=== PATIENT | female | born 1950 | race Caucasian/White ===

== ENCOUNTER → 2017-01-23 | Outpatient (CLI) | payer OTHER ==
--- NOTE | 2017-01-24 08:44 | PN ---
A 66-year-old female patient coming in for a 3-year followup regarding obstructive sleep apnea. The patient has an AHI of 18 and the patient has been on a CPAP pressure of 9 cm of water. She is using a Martin FX mask. She preferred an alternative mask and she wants to keep up with a pillow design. I gave her the AirFit P10 medium size, which she liked. A prescription was given. Otherwise, her management is successful and her average CPAP use is around 7 hours and 12 minutes per night. She is waking up refreshed and alert during the day. No complaints of somnolence or sleepiness. BP is 156/78, pulse 88, respirations 16, temperature 98.1, sats are 96% on room air. Weight is 223. Height 5 feet 1 inch. BMI is 41.4. GENERAL APPEARANCE: Calm, comfortable. HEENT: Short neck, crowing of posterior pharynx. There is no goiter or neck masses. LUNGS: Clear to auscultation. HEART: Sounds regular rate and rhythm. Normal S1 and S2. No S3, no murmur. ABDOMEN: Soft, nontender. No organomegaly. EXTREMITIES: No edema. No cyanosis or clubbing. IMPRESSION: 1. Obstructive sleep apnea. AHI of 18. Successful treatment with a CPAP pressure of 9 cm of water. 2. Obesity with interval 20-pound weight gain. Body mass index 41.4. 3. Hypersomnia, recovered. 4. Hypothyroidism. PLAN: 1. Continue CPAP at same level of pressure. 2. Provide this patient a AirFit P10 nasal pillow along with filters, chamber and supplies. 3. See me back in a years time, earlier if needed. The prescription will be sent to [facility] the patient's usual DME. LEXIS
== END ==
LOC: SLEEP 16:33
PROVIDERS: ATTEND Internal Medicine Critical Care Medicine
DX: G47.33 Obstructive sleep apnea (adult) (pediatric) (principal); E66.9 Obesity, unspecified; G47.10 Hypersomnia, unspecified; E03.9 Hypothyroidism, unspecified; Z68.41 Body mass index [BMI] 40.0-44.9, adult

== ENCOUNTER → 2017-04-13 | Outpatient (CLI) | payer OTHER ==
--- NOTE | 2017-04-13 08:23 | BD ---
EXAMINATION TYPE: MG DEXA axial skeleton. DATE OF EXAM: 04/13/2017 COMPARISON: 12/11/2014 CLINICAL HISTORY: Postmenopausal female Height: 61.5 IN Weight: 222 LBS FRAX RISK QUESTIONS: Alcohol (3 or more units per day): NO Family History (Parent hip fracture): YES MOTHER Glucocorticoids (More than 3mos): NO (Ex: prednisone, prednisolone, methylprednisolone, dexamethasone, and hydrocortisone). History of Fracture in Adulthood: NO Secondary Osteoporosis: 1. Type 1 Diabetes: NO 2. Hyperthyroidism: NO 3. Menopause before 45: NO 4. Malnutrition: NO 5. Chronic liver disease: NO Rheumatoid Arthritis: NO Current Tobacco Use: NO RISK FACTORS HISTORY OF: Active: YES Postmenopausal woman: AGE 51 MEDICATIONS: Thyroid Medications: YES Which medication: Levothyroxine How Lon YEARS Osteoporosis Medications: NOT NOW Which medication: Actonel How Long: AGE 60 - 61 Additional Medications: CALCIUM, VIT D, MULTI VIT, LEVOTHYROXINE, LIPITOR, SINGULAIR, EXAM MEASUREMENTS: Bone mineral densitometry was performed using the Yantra System. Bone mineral density as measured about the Lumbar spine is: ----- L1-L4(G/cm2): 1.008 T Score Values are as follows: ----- L2: -1.8 ----- L3: -1.6 ----- L4: -1.5 ----- L1-L4: -1.4 Bone mineral density has: Increased 0.6% since study of: 12/11/2014 Bone mineral density about the R hip (g/cm2): 0.906 Bone mineral density about the L hip (g/cm2): 0.859 T Score values are as follows: -----R Neck: -0.9 -----L Neck: -1.3 -----R Total: -0.4 -----L Total: -0.4 Bone mineral density has: Increased 3.0% since study of: 12/11/2014 IMPRESSION: Osteopenia (T Score between -2.5 and -1 as noted by T score values There is slightly increased risk of fracture and the patient may be considered for treatment. Re-Screen 2-5 years. NOTE: T-SCORE=SD OF THE YOUNG ADULT MEAN.
--- NOTE | 2017-04-17 08:06 | MM ---
Reason for exam: screening (asymptomatic). Last mammogram was performed 1 year and 1 month ago. History: Patient is postmenopausal. Physical Findings: A clinical breast exam by your physician is recommended on an annual basis and results should be correlated with mammographic findings. MG Screening Mammo w CAD Bilateral CC and MLO view(s) were taken. Prior study comparison: March 10, 2016, bilateral MG screening mammo w CAD. April 21, 2014, bilateral MG screening mammo w CAD. There are scattered fibroglandular densities. No significant changes when compared with prior studies. ASSESSMENT: Negative, BI-RAD 1 RECOMMENDATION: Routine screening mammogram of both breasts in 1 year.
== END | disposition home or self-care (01) ==
LOC: RADMAMWWP 07:32
PROVIDERS: ATTEND Family Medicine
DX: Z12.31 Encounter for screening mammogram for malignant neoplasm of breast (principal); M85.852 Other specified disorders of bone density and structure, left thigh; M85.88 Other specified disorders of bone density and structure, other site
CPT/HCPCS: 77080; G0202

== ENCOUNTER → 2018-03-12 | Outpatient (CLI) | payer OTHER ==
--- NOTE | 2018-03-12 18:52 | PN ---
PROGRESS NOTE This is a 66-year-old female patient with a diagnosis of obstructive sleep apnea. She is coming in for an annual check regarding her KAUSHIK treatment. The patient during this time has obtained a new CPAP machine and she wants to make sure the machine is functioning properly and the settings are right, and she wants also to do a compliancy check. She is benefitting from the treatment. This new CPAP machine is a ResMed unit, an AirSense which is set at a pressure of 9 cm of water. She is still using the AirFit P10 nose pillows. She is doing extremely well. She is waking up alert and refreshed during the day. No major hypersomnia or sleepiness during the day. Based on the CPAP compliance data, the CPAP has been utilized 100% of the time with an average of 7.4 hours per night and her leak factor is 1 L. Her AHI while on treatment is down to 1. No central apneas noted. PHYSICAL EXAMINATION: BP is 160/86, pulse 70, respirations 16. [place] score is 1, temperature 98.1, weight 226, saturation 95% on room air. GENERAL APPEARANCE: Calm, comfortable. Head is atraumatic, normocephalic. Neck is supple. No JVD. No goiter or neck masses. LUNGS: Clear to auscultation. Heart sounds are regular rate and rhythm. Normal S1, S2. No S3, S4. No murmurs. Abdomen is soft, nontender. No organomegaly. EXTREMITIES: No edema. No cyanosis or clubbing. NEUROLOGIC: The patient is alert and oriented x3. No focal neurological deficits. PSYCHIATRIC: Negative for anxiety or depression. IMPRESSION: Obstructive sleep apnea, moderate in severity, with an apnea/hypopnea index of 18. The patient is being successfully treated with a CPAP machine with a pressure of 9 cm of water. The patient continues to benefit from treatment. The patient is demonstrating adequate compliancy on the CPAP compliancy data. Continue using the AirFit P10 nose pillows. Continue treatment. See me back in followup in a year's time, earlier if needed. MMIRAJL / DENNISN: [id number] /
== END | disposition home or self-care (01) ==
LOC: SLEEP 16:20
PROVIDERS: ATTEND Internal Medicine Critical Care Medicine
DX: G47.33 Obstructive sleep apnea (adult) (pediatric) (principal); Z99.89 Dependence on other enabling machines and devices

== ENCOUNTER → 2019-03-25 | Outpatient (CLI) | payer OTHER ==
--- NOTE | 2019-03-25 19:52 | PN ---
PROGRESS NOTE This is a 68-year-old female patient coming in for an annual check regarding obstructive sleep apnea. The patient was diagnosed having obstructive sleep apnea and in mid 2018 I switched this patient to a newer-generation CPAP unit, as the patient's previous machine was not functioning properly and it was broken. As such, I ordered a new CPAP machine for her. I did her first compliancy check on 03/12/2018, and the patient looked fine. Today she is coming in for a yearly checkup. I am glad to report that the patient has been successfully treated. She has moderate to severe disease with an AHI of 18 and the patient is currently on a CPAP pressure of 9 cm of water. Based on the compliancy check, the patient has been averaging about 7.6 hours of CPAP use per night with a leak of 5 L/minute and her AHI is down to 1.2. Her CPAP use for more than 4 hours is 100%. She is using medium-sized AirFit P10 nose pillows. Her weight has been stable, with only a one-pound weight gain over the past one year. Her [place] score is only at 2. She has no specific complaints. Her treatment remains successful. REVIEW OF SYSTEMS: Fourteen-point review of system was done. Positive findings are all mentioned above in the history of present illness. No active issues or complaints for now. PHYSICAL EXAMINATION: VITAL SIGNS: BP is 149/79, pulse is 82, respirations 16, temperature 98.2, saturation 94% on room air. Height is 5 feet 1 inch. Weight is 227 and BMI 42.8. GENERAL APPEARANCE: Calm, comfortable. HEAD: Atraumatic, normocephalic. NECK: Supple. Mallampati class IV. There is no goiter or neck mass. LUNGS: Clear to auscultation. HEART: Heart sounds are regular rate and rhythm. Normal S1, S2. No S3, S4. No murmurs. ABDOMEN: Soft, nontender. No organomegaly. EXTREMITIES: No edema. No cyanosis or clubbing. NEUROLOGIC: Awake and alert. There is no focal neurological deficit. PSYCHIATRIC: Negative for anxiety or depression. IMPRESSION: 1. Obstructive sleep apnea, apnea/hypopnea index of 18, currently on CPAP pressure of 9 with excellent clinical response and compliance. 2. Obesity, stable; body mass index of 41. 3. Hypersomnia, recovered. [place] score is down to 2. 4. Hypothyroidism. PLAN: Continue CPAP therapy at the same level of pressure. The patient is currently well treated and there is no need for any adjustment. Will keep her at a pressure of 9. Keep the same mask interface, which is an AirFit P10. Encourage weight loss. Optimize sleep hygiene measures. Treatment is successful. See me back in a year's time, earlier if needed. TITO / DENNISN: [id number] /
== END ==
LOC: SLEEP 13:42
PROVIDERS: ATTEND Internal Medicine Critical Care Medicine
DX: G47.33 Obstructive sleep apnea (adult) (pediatric) (principal); E66.9 Obesity, unspecified; E03.9 Hypothyroidism, unspecified; Z99.89 Dependence on other enabling machines and devices; Z68.41 Body mass index [BMI] 40.0-44.9, adult

== ENCOUNTER → 2020-02-24 | Outpatient (CLI) | payer OTHER ==
--- NOTE | 2020-02-25 11:09 | MM ---
Reason for exam: screening (asymptomatic). Last mammogram was performed 1 year and 6 months ago. History: Patient is postmenopausal. Physical Findings: A clinical breast exam by your physician is recommended on an annual basis and results should be correlated with mammographic findings. MG Screening Mammo w CAD Bilateral CC and MLO view(s) were taken. Prior study comparison: August 19, 2018, bilateral MG screening mammo w CAD. April 13, 2017, bilateral MG screening mammo w CAD. There are scattered fibroglandular densities. Finding: There are typically benign round, regional calcifications in the right breast. There is no discrete abnormality. ASSESSMENT: Benign, BI-RAD 2 RECOMMENDATION: Routine screening mammogram of both breasts in 1 year.
== END | disposition home or self-care (01) ==
LOC: RADMAMWWP 15:47
PROVIDERS: ATTEND Family Medicine
DX: Z12.31 Encounter for screening mammogram for malignant neoplasm of breast (principal)
CPT/HCPCS: 77067

== ENCOUNTER 2020-02-27 16:42 | Observation (INO) | payer OTHER ==
--- NOTE | 2020-02-27 17:21 | ED ---
General Adult HPI - General Chief complaint: Chest Pain Stated complaint: chest pains Time Seen by Provider: 02/27/20 16:59 Source: patient, RN notes reviewed, old records reviewed Mode of arrival: ambulatory Limitations: no limitations - History of Present Illness Initial comments: 69 yo - Related Data Home Medications Medication Instructions Recorded Confirmed Ascorbic Acid [Vitamin C] 500 mg PO DAILY 02/27/20 02/27/20 Aspirin EC [Ecotrin Low Dose] 81 mg PO DAILY 02/27/20 02/27/20 Atorvastatin Calcium [Lipitor] 20 mg PO HS 02/27/20 02/27/20 Calcium Carbonate [Calcium] 600 mg PO DAILY 02/27/20 02/27/20 Cholecalciferol [Vitamin D3 (25 1,000 unit PO DAILY 02/27/20 02/27/20 Mcg = 1000 Iu)] Fish Oil/Dha/Epa [Fish Oil 1,200 1 cap PO HS 02/27/20 02/27/20 mg Fish Oil] Levothyroxine Sodium [Euthyrox] 125 mcg PO DAILY 02/27/20 02/27/20 Loratadine 10 mg PO DAILY 02/27/20 02/27/20 Montelukast [Singulair] 10 mg PO HS 02/27/20 02/27/20 Multivitamins, Thera [Multivitamin 1 tab PO DAILY 02/27/20 02/27/20 (formulary)] Allergies Allergy/AdvReac Type Severity Reaction Status Date / Time No Known Allergies Allergy Verified 02/27/20 17:54 Review of Systems ROS Statement: Those systems with pertinent positive or pertinent negative responses have been documented in the HPI. ROS Other: All systems not noted in ROS Statement are negative. Past Medical History Past Medical History: Asthma, Hyperlipidemia, Sleep Apnea/CPAP/BIPAP, Thyroid Disorder Additional Past Medical History / Comment(s): heart murmur History of Any Multi-Drug Resistant Organisms: None Reported Past Surgical History: No Surgical Hx Reported Past Psychological History: No Psychological Hx Reported Smoking Status: Never smoker Past Alcohol Use History: None Reported Past Drug Use History: None Reported General Exam Limitations: no limitations Course Vital Signs 02/27/20 16:48 Temperature 97.9 F Pulse Rate 77 Respiratory 18 Rate Blood Pressure 183/85 O2 Sat by Pulse 96 Oximetry EKG Findings - EKG Comments: EKG Findings:: EKG: Normal sinus rhythm, rate of 83, IL interval 122, QRS duration 96, QTC 474, no ST segment elevation Medical Decision Making - Medical Decision Making 69-year-old female presenting for evaluation of chest pain. EKG is sinus rhythm without ST segment elevation. Chest x-rays negative for acute cardiopulmonary findings. Patient has normal CBC, normal CMP, she has a negative d-dimer, negative initial troponin. Patient will be kept in observation for serial cardiac enzymes, telemetry, cardiology consultation. Case is discussed with Dr. Rosa who will admit. Cardiology placed on consult. Disposition Clinical Impression: Chest pain Disposition: ADMITTED IP TO THIS HOSP Condition: Stable Is patient prescribed a controlled substance at d/c from ED?: No Referrals: Farshad De La Paz MD [Primary Care Provider] - 1-2 days Decision to Admit Reason: Admit from EC Decision Date: 02/27/20 Decision Time: 18:16
[2020-02-27 17:36] LABS: ALT 27 U/L (4-34); AST 25 U/L (14-36); African American GFR (CKD) >90 (>60 ml/min/1.73 sqM); Albumin 4.7 g/dL (3.5-5.0); Alkaline Phosphatase 98 U/L (38-126); Anion Gap 8 mmol/L; Blood Urea Nitrogen 17 mg/dL (7-17); Calcium 9.7 mg/dL (8.4-10.2); Carbon Dioxide 28 mmol/L (22-30); Chloride 104 mmol/L (98-107); Glucose 104 mg/dL (74-99); Magnesium 2.1 mg/dL (1.6-2.3); Non-African American GFR(CKD) 85 (>60 ml/min/1.73 sqM); Potassium 4.1 mmol/L (3.5-5.1); Sodium 140 mmol/L (137-145); Total Bilirubin 0.5 mg/dL (0.2-1.3)
[2020-02-27 17:38] LABS: Basophils # (A) 0.1 k/uL (0-0.2); Basophils % (A) 1 %; Eosinophils # (A) 0.3 k/uL (0-0.7); Eosinophils % (A) 4 %; HCT 46.1 % (34.0-46.0); Lymphocytes % (A) 40 %; MCHC 32.4 g/dL (31.0-37.0); MCV 89.4 fL (80.0-100.0); Mean Platelet Volume 6.7; Monocytes # (A) 0.5 k/uL (0-1.0); Monocytes % (A) 6 %; Neutrophils # (A) 3.7 k/uL (1.3-7.7); Neutrophils % (A) 48 %; Platelet Count 323 k/uL (150-450); RBC 5.16 m/uL (3.80-5.40); RDW 12.5 % (11.5-15.5); WBC 7.6 k/uL (3.8-10.6)
--- NOTE | 2020-02-27 17:39 | XR ---
EXAMINATION TYPE: XR chest 2V DATE OF EXAM: 02/27/2020 COMPARISON: NONE HISTORY: Chest pain TECHNIQUE: 2 views FINDINGS: Heart is normal. Lungs are clear of infiltrate. There are chest leads. Costophrenic angles are clear. Bony thorax is intact. IMPRESSION: No active cardiopulmonary disease. Normal heart.
[2020-02-27 17:58] LABS: D-Dimer 0.33 mg/L FEU (<0.60); INR 0.9 (<1.2); Partial Thromboplastin Time 22.3 sec (22.0-30.0); Prothrombin Time 9.8 sec (9.0-12.0)
[2020-02-27] MEDS ORDERED: ASPIRIN 325 MG TAB PO STA (18:13)
[2020-02-27] MEDS ORDERED: NITROGLYCERIN SL TABS 0.4 MG TAB SUBLINGUAL PRN (18:13)
[2020-02-27] MEDS ORDERED: ACETAMINOPHEN TAB 325 MG TAB PO PRN (18:14)
[2020-02-27] MEDS ORDERED: NALOXONE 0.4 MG/ML 1 ML VIAL IV PRN (18:14)
[2020-02-27] MEDS ORDERED: MORPHINE SULFATE 4 MG/ML SYRINGE IV PRN (18:14)
[2020-02-27 20:37] VITALS: RESP 16
[2020-02-27] MEDS ORDERED: ATORVASTATIN 20 MG TAB PO SCH (21:00)
[2020-02-28] MEDS ORDERED: LEVOTHYROXINE 125 MCG TAB PO SCH (06:30)
[2020-02-28] MEDS ORDERED: ASPIRIN 325 MG TAB PO SCH (09:00)
[2020-02-28] MEDS ORDERED: METOPROLOL TARTRATE 25 MG TAB PO SCH (10:30)
--- NOTE | 2020-02-28 10:39 | P.CRDCN ---
History of Present Illness Consult date: 02/28/20 Requesting physician: Jamil Rosa Reason for Consult (text): chest pain Chief complaint: chest pain History of present illness: This is a pleasant 69-year-old female patient with a past medical history of asthma, hypothyroidism, hyperlipidemia and obstructive sleep apnea for which she uses CPAP. She also has a family history of CAD as her brother at the age of 45 from an [place]. Has been having complaints of fleeting left-sided chest discomfort that lasts just seconds. Presented to the hospital after developing a dull ache in her chest in the same location but lasted much longer. It did not occur with activity and she is active walking her dog and gardening without any difficulties. EKG on admission showed normal sinus rhythm with no evidence of ischemia. Blood pressure was elevated at 183/85 on admission but the patient says she was quite nervous. Blood pressure has been elevated in the 140s to 150s since arrival to the floor. Labs show white blood cell count 7.6, hemoglobin 15.0, d-dimer 0.33, sodium 140, potassium 4.1, BUN 17, creatinine 0.74, NT proBNP 26 and troponins negative 2. Home medications include vitamin D3, calcium, vitamin C, levothyroxine, multivitamins, fish oil, loratadine, aspirin 81 mg daily, Singulair and Lipitor 20 mg by mouth daily at bedtime. On examination, patient is resting comfortably in bed. She has had no further comp laints of chest discomfort. She's had no complaints of unusual dyspnea on exertion, orthopnea, PND, nausea, indigestion or heartburn, palpitations, dizziness or lightheadedness. Past Medical History Past Medical History: Asthma, Hyperlipidemia, Sleep Apnea/CPAP/BIPAP, Thyroid Disorder Additional Past Medical History / Comment(s): heart murmur History of Any Multi-Drug Resistant Organisms: None Reported Past Surgical History: No Surgical Hx Reported Past Anesthesia/Blood Transfusion Reactions: No Reported Reaction Past Psychological History: No Psychological Hx Reported Smoking Status: Never smoker Past Alcohol Use History: None Reported Past Drug Use History: None Reported Medications and Allergies Home Medications Medication Instructions Recorded Confirmed Type Ascorbic Acid [Vitamin C] 500 mg PO DAILY 02/27/20 02/27/20 History Aspirin EC [Ecotrin Low Dose] 81 mg PO DAILY 02/27/20 02/27/20 History Atorvastatin Calcium [Lipitor] 20 mg PO HS 02/27/20 02/27/20 History Calcium Carbonate [Calcium] 600 mg PO DAILY 02/27/20 02/27/20 History Cholecalciferol [Vitamin D3 (25 1,000 unit PO DAILY 02/27/20 02/27/20 History Mcg = 1000 Iu)] Fish Oil/Dha/Epa [Fish Oil 1,200 1 cap PO HS 02/27/20 02/27/20 History mg Fish Oil] Levothyroxine Sodium [Euthyrox] 125 mcg PO DAILY 02/27/20 02/27/20 History Loratadine 10 mg PO DAILY 02/27/20 02/27/20 History Montelukast [Singulair] 10 mg PO HS 02/27/20 02/27/20 History Multivitamins, Thera [Multivitamin 1 tab PO DAILY 02/27/20 02/27/20 History (formulary)] Allergies Allergy/AdvReac Type Severity Reaction Status Date / Time No Known Allergies Allergy Verified 02/27/20 17:54 Physical Exam Vitals: Vital Signs Temp Pulse Pulse Resp BP BP BP 02/28/20 08:56 86 16 02/28/20 08:30 98.1 F 86 16 150/78 02/28/20 07:59 02/28/20 04:05 97.8 F 65 150/78 02/27/20 22:32 98.1 F 73 159/88 02/27/20 22:00 98.3 F 77 16 142/94 02/27/20 20:37 75 16 159/95 02/27/20 18:00 68 18 160/93 02/27/20 17:30 72 18 175/102 02/27/20 16:48 97.9 F 77 18 183/85 Pulse Ox 02/28/20 08:56 02/28/20 08:30 02/28/20 07:59 96 02/28/20 04:05 97 02/27/20 22:32 97 02/27/20 22:00 95 02/27/20 20:37 97 02/27/20 18:00 98 02/27/20 17:30 99 02/27/20 16:48 96 Intake and Output 02/27/20 02/28/20 02/28/20 22:59 06:59 14:59 Intake Total 275 Output Total 0 300 300 Balance 275 -300 -300 Intake: Oral 275 Output: Urine 0 300 300 Other: Voiding Method Toilet Toilet # Voids 0 1 1 Weight 99.79 kg PHYSICAL EXAMINATION: This is a 69-year-old female in no apparent distress at the time of my examination. VITAL SIGNS: Blood pressure 150/78, heart rate 65, respirations 16, temp 97.8 F. Patient is 96 % on room air. HEENT: Head is atraumatic, normocephalic. Pupils are equal, round. Sclerae anicteric. Conjunctivae are clear. Mucous membranes of the mouth are moist. Neck is supple. There is no elevated jugular venous pressure. No carotid bruit is heard. CHEST EXAMINATION: Clear to auscultation bilaterally. No wheezes rales or rhonchi. Respirations even and nonlabored. HEART EXAMINATION: Heart regular, positive S1 and S2. No S3. No S4. With a so ft systolic murmur at the base. ABDOMEN: Soft, nontender. Bowel sounds are heard. No organomegaly noted. EXTREMITIES: 2+ peripheral pulses with no evidence of peripheral edema and no calf tenderness noted. NEUROLOGIC EXAMINATION: Patient is awake, alert and oriented x3. Results 02/27/20 17:14 02/27/20 17:14 Cardiac Enzymes 02/27/20 02/27/20 02/27/20 Range/Units 17:14 17:14 20:18 AST 25 (14-36) U/L Troponin I <0.012 <0.012 (0.000-0.034) ng/mL Coagulation 02/27/20 Range/Units 17:14 PT 9.8 (9.0-12.0) sec APTT 22.3 (22.0-30.0) sec CBC 02/27/20 Range/Units 17:14 WBC 7.6 (3.8-10.6) k/uL RBC 5.16 (3.80-5.40) m/uL Hgb 15.0 (11.4-16.0) gm/dL Hct 46.1 H (34.0-46.0) % Plt Count 323 (150-450) k/uL Comprehensive Metabolic Panel 02/27/20 Range/Units 17:14 Sodium 140 (137-145) mmol/L Potassium 4.1 (3.5-5.1) mmol/L Chloride 104 (98-107) mmol/L Carbon Dioxide 28 (22-30) mmol/L BUN 17 (7-17) mg/dL Creatinine 0.74 (0.52-1.04) mg/dL Glucose 104 H (74-99) mg/dL Calcium 9.7 (8.4-10.2) mg/dL AST 25 (14-36) U/L ALT 27 (4-34) U/L Alkaline Phosphatase 98 (38-126) U/L Total Protein 8.0 (6.3-8.2) g/dL Albumin 4.7 (3.5-5.0) g/dL Current Medications Generic Name Dose Route Start Last Admin Trade Name Freq PRN Reason Stop Dose Admin Acetaminophen 650 mg 02/27/20 18:14 Acetaminophen Tab 325 Mg Tab PO Q6HR PRN Mild Pain or Fever > 100.5 Aspirin 325 mg 02/28/20 09:00 02/28/20 08:30 Aspirin 325 Mg Tab PO 325 mg DAILY AMILCAR Administration Atorvastatin Calcium 20 mg 02/27/20 21:00 02/27/20 22:03 Atorvastatin 20 Mg Tab PO 20 mg HS AMILCAR Administration Levothyroxine Sodium 125 mcg 02/28/20 06:30 02/28/20 05:56 Levothyroxine 125 Mcg Tab PO 125 mcg DAILY@0630 MAILCAR Administration Morphine Sulfate 4 mg 02/27/20 18:14 Morphine Sulfate 4 Mg/Ml Syringe IV Q4HR PRN Severe Pain Naloxone HCl 0.2 mg 02/27/20 18:14 Naloxone 0.4 Mg/Ml 1 Ml Vial IV Q2M PRN Opioid Reversal Nitroglycerin 0.4 mg 02/27/20 18:13 Nitroglycerin Sl Tabs 0.4 Mg Tab SUBLINGUAL Q5M PRN Chest Pain Intake and Output 02/27/20 02/28/20 02/28/20 22:59 06:59 14:59 Intake Total 275 Output Total 0 300 300 Balance 275 -300 -300 Intake: Oral 275 Output: Urine 0 300 300 Other: Voiding Method Toilet Toilet # Voids 0 1 1 Weight 99.79 kg 02/27/20 17:14 02/27/20 17:14 EKG Interpretations (text) Normal sinus rhythm Assessment and Plan Assessment: #1 symptoms of chest discomfort, EKG shows no evidence of acute ischemia, troponins have been negative 2 #2 hyperlipidemia #3 hypothyroidism #4 asthma #5 obstructive sleep apnea #6 elevated blood pressure without prior diagnosis of hypertension Plan: From cardiology perspective we'll obtain a 2-D echo with Doppler to assess cardiac structure and function. We will add a beta tawanda. Ambulate the patient and if she remains chest pain-free she may be discharged home today and follow-up as an outpatient. She'll monitor her blood pressure at home. RESEARCH NUTRITIONIST note has been reviewed, I agree with a documented findings and plan of care. Patient was seen and examined.
--- NOTE | 2020-02-28 16:13 | ECHOF ---
Referral Reason:chest pain MEASUREMENTS -------- HEIGHT: 157.5 cm WEIGHT: 99.8 kg BP: IVSd: 1.3 cm (0.6 - 1.1) LVIDd: 2.7 cm (3.9 - 5.3) LVPWd: 1.5 cm (0.6 - 1.1) EDV(Teich): 28 ml IVSs: 1.6 cm LVIDs: 1.2 cm LVPWs: 1.3 cm %IVS Thck: 19 % ESV(Teich): 4 ml EF(Teich): 87 % %FS: 55 % SV(Teich): 24 ml IVC: 14.56 mm LALs A4C: 4.8 cm LAAs A4C: 12.6 cm LAESV A-L A4C: 28 ml LAESV MOD A4C: 26 ml LALs A2C: 4.3 cm LAAs A2C: 12.4 cm LAESV A-L A2C: 30 ml LAESV MOD A2C: 28 ml LAESV(A-L): 31 ml LAESV Index (A-L): 15.34 ml/m Ao Diam: 3.2 cm (2.0 - 3.7) LA Diam: 2.6 cm (2.7 - 3.8) AV Cusp: 1.9 cm (1.5 - 2.6) MV E Tommy: 0.57 m/s MV DecT: 157 ms MV Dec Ransom: 3.6 m/s MV A Tommy: 0.92 m/s MV E/A Ratio: 0.62 MV PHT: 46 ms MR Vmax: 1.00 m/s MR maxP.99 mmHg AV Vmax: 1.33 m/s AV maxP.04 mmHg TR Vmax: 1.59 m/s TR maxP.07 mmHg RAP: 5.00 mmHg RVSP: 15.07 mmHg FINDINGS -------- Sinus rhythm. This was a technically difficult study with suboptimal views. The left ventricular size is normal. There is moderate concentric left ventricular hypertrophy. O verall left ventricular systolic function is normal with, an EF between 55 - 60 %. The diastolic fi lling pattern is normal for the age of the patient 11.76. The right ventricle is normal in size. Normal LA size by volume 22+/-6 ml/m2. The right atrial size is normal. The aortic valve was not well visualized. The mitral valve leaflets are mildly thickened. There is trace mitral regurgitation. The tricuspid valve appears structurally normal. Trace tricuspid regurgitation present. Right yvonne tricular systolic pressure is normal at < 35 mmHg. The pulmonic valve was not well visualized. The aortic root size is normal. Normal inferior vena cava with normal inspiratory collapse consistent with estimated right atrial pre ssure of 5 mmHg. There is no pericardial effusion. CONCLUSIONS -------- 1. There is moderate concentric left ventricular hypertrophy. 2. Overall left ventricular systolic function is normal with, an EF between 55 - 60 %. 3. The diastolic filling pattern is normal for the age of the patient 11.76 4. Normal LA size by volume 22+/-6 ml/m2. 5. The mitral valve leaflets are mildly thickened. 6. There is trace mitral regurgitation. 7. Trace tricuspid regurgitation present. 8. There is no pericardial effusion. ASSOCIATE AUTOMATION ENGINEER: Mae Walsh RDCS
[2020-02-28 17:06] VITALS: BP 134/87; PULSE 70; TEMP 97
[2020-02-29] MEDS ORDERED: ASPIRIN 81 MG PO SCH (09:00)
[2020-02-29] MEDS ORDERED: ASPIRIN 325 MG TAB PO SCH (09:00)
--- NOTE | 2020-03-03 23:21 | P.HPIM ---
History of Present Illness H&P Date: 02/28/20 Chief Complaint: chest pain 69-year-old female patient with a past medical history of asthma, hypothyroidism, hyperlipidemia and obstructive sleep apnea for which she uses CPAP. She also has a family history of CAD as her brother at the age of 45 from an OR. Has been having complaints of fleeting left-sided chest discomfort that lasts just seconds. Presented to the hospital after developing a dull ache in her chest in the same location but lasted much longer. It did not occur with activity and she is active walking her dog and gardening without any difficulties. EKG on admission showed normal sinus rhythm with no evidence of ischemia. Blood pressure was elevated at 183/85 on admission but the patient says she was quite nervous. Blood pressure has been elevated in the 140s to 150s since arrival to the floor. Labs show white blood cell count 7.6, hemoglobin 15.0, d-dimer 0.33, sodium 140, potassium 4.1, BUN 17, creatinine 0.74, NT proBNP 26 and troponins negative 2. Home medications include vitamin D3, calcium, vitamin C, levothyroxine, multivitamins, fish oil, loratadine, aspirin 81 mg daily, Singulair and Lipitor 20 mg by mouth daily at bedtime. Review of Systems Constitutional: Denies anorexia, Denies fever Eyes: denies blurred vision, denies loss of vision Ears, nose, mouth and throat: Denies mouth pain, Denies sinus pain Cardiovascular: Reports chest pain, Denies dyspnea on exertion Respiratory: Denies cough, Denies cough with sputum Gastrointestinal: Denies abdominal pain, Denies diarrhea, Denies nausea, Denies vomiting Musculoskeletal: Denies arm numbness/tingling, Denies low back pain Integumentary: Denies color changes, Denies depigmentation Neurological: Denies change in mentation, Denies change in speech, Denies convulsions, Denies tremors Endocrine: Denies cold intolerance, Denies heat intolerance, Denies polyphagia, Denies polyuria Past Medical History Past Medical History: Asthma, Hyperlipidemia, Sleep Apnea/CPAP/BIPAP, Thyroid Disorder Additional Past Medical History / Comment(s): heart murmur History of Any Multi-Drug Resistant Organisms: None Reported Past Surgical History: No Surgical Hx Reported Past Anesthesia/Blood Transfusion Reactions: No Reported Reaction Past Psychological History: No Psychological Hx Reported Smoking Status: Never smoker Past Alcohol Use History: None Reported Past Drug Use History: None Reported Medications and Allergies Home Medications Medication Instructions Recorded Confirmed Type Ascorbic Acid [Vitamin C] 500 mg PO DAILY 02/27/20 02/27/20 History Aspirin EC [Ecotrin Low Dose] 81 mg PO DAILY 02/27/20 02/27/20 History Atorvastatin Calcium [Lipitor] 20 mg PO HS 02/27/20 02/27/20 History Calcium Carbonate [Calcium] 600 mg PO DAILY 02/27/20 02/27/20 History Cholecalciferol [Vitamin D3 (25 1,000 unit PO DAILY 02/27/20 02/27/20 History Mcg = 1000 Iu)] Fish Oil/Dha/Epa [Fish Oil 1,200 1 cap PO HS 02/27/20 02/27/20 History mg Fish Oil] Levothyroxine Sodium [Euthyrox] 125 mcg PO DAILY 02/27/20 02/27/20 History Loratadine 10 mg PO DAILY 02/27/20 02/27/20 History Montelukast [Singulair] 10 mg PO HS 02/27/20 02/27/20 History Multivitamins, Thera [Multivitamin 1 tab PO DAILY 02/27/20 02/27/20 History (formulary)] Metoprolol Tartrate [Lopressor] 25 mg PO BID #30 tab 02/28/20 Rx Allergies Allergy/AdvReac Type Severity Reaction Status Date / Time No Known Allergies Allergy Verified 02/27/20 17:54 Physical Exam Vitals: Vital Signs Temp Pulse Pulse Resp BP BP BP 02/28/20 08:56 86 16 02/28/20 08:30 98.1 F 86 16 150/78 02/28/20 07:59 02/28/20 04:05 97.8 F 65 150/78 02/27/20 22:32 98.1 F 73 159/88 02/27/20 22:00 98.3 F 77 16 142/94 02/27/20 20:37 75 16 159/95 02/27/20 18:00 68 18 160/93 02/27/20 17:30 72 18 175/102 02/27/20 16:48 97.9 F 77 18 183/85 Pulse Ox 02/28/20 08:56 02/28/20 08:30 02/28/20 07:59 96 02/28/20 04:05 97 02/27/20 22:32 97 02/27/20 22:00 95 02/27/20 20:37 97 02/27/20 18:00 98 02/27/20 17:30 99 02/27/20 16:48 96 Intake and Output 02/27/20 02/28/20 02/28/20 22:59 06:59 14:59 Intake Total 275 Output Total 0 300 300 Balance 275 -300 -300 Intake: Oral 275 Output: Urine 0 300 300 Other: Voiding Method Toilet Toilet # Voids 0 1 1 Weight 99.79 kg - Constitutional General appearance: no acute distress - EENT Eyes: EOMI, PERRLA Ears: bilateral: normal - Neck Carotids: bilateral: bruit absent Thyroid: negative: enlarged, nodule - Respiratory Respiratory: bilateral: CTA - Cardiovascular Rhythm: regular Heart sounds: normal: S1, S2 - Gastrointestinal General gastrointestinal: normal bowel sounds, soft, no tenderness - Neurologic Neurologic: CNII-XII intact - Musculoskeletal Musculoskeletal: no generalized weakness, strength equal bilaterally Results CBC & Chem 7: 02/27/20 17:14 02/27/20 17:14 Labs: Abnormal Lab Results - Last 24 Hours (Table) 02/27/20 02/27/20 Range/Units 17:14 17:14 Hct 46.1 H (34.0-46.0) % Glucose 104 H (74-99) mg/dL Thrombosis Risk Factor Assmnt - Choose All That Apply Each Factor Represents 1 point: Obesity (BMI >25) Each Risk Factor Represents 2 Points: Age 61-74 years Thrombosis Risk Factor Assessment Total Risk Factor Score: 3 Thrombosis Risk Factor Assessment Level: Moderate Risk Assessment and Plan Assessment: 1. Chest discomfort, EKG shows no evidence of acute ischemia, troponins have been negative 2; obtain a 2-D echo with Doppler to assess cardiac structure and function 2. Hyperlipidemia; continue with current statin therapy 3. Hypothyroidism; levothyroxine 125 mcg daily 4. Asthma; singulair 10 mg daily 5. Obstructive sleep apnea 6. Uncontrolled hypertension; add a beta tawanda DVT Ppx; SCDs CODE STATUS; Full Code
--- NOTE | 2020-03-03 23:23 | P.DS ---
Providers Date of admission: 02/27/20 18:15 Expected date of discharge: 02/28/20 Attending physician: Jamil Rosa Consults: 02/27/20 18:14 Consult Physician Routine Consulting Provider: Ulices Escalera Consult Reason/Comments: CP Do you want consulting provider notified?: Yes Primary care physician: Farshad De La Paz [facility] Course: 69-year-old female patient with a past medical history of asthma, hypothyroidism, hyperlipidemia and obstructive sleep apnea for which she uses CPAP. She also has a family history of CAD as her brother at the age of 45 from an [place]. Has been having complaints of fleeting left-sided chest discomfort that lasts just seconds. Presented to the hospital after developing a dull ache in her chest in the same location but lasted much longer. It did not occur with activity and she is active walking her dog and gardening without any difficulties. EKG on admission showed normal sinus rhythm with no evidence of ischemia. Blood pressure was elevated at 183/85 on admission but the patient says she was quite nervous. Blood pressure has been elevated in the 140s to 150s since arrival to the floor. Labs show white blood cell count 7.6, hemoglobin 15.0, d-dimer 0.33, sodium 140, potassium 4.1, BUN 17, creatinine 0.74, NT proBNP 26 and troponins negative 2. Home medications include vitamin D3, calcium, vitamin C, levothyroxine, multivitamins, fish oil, loratadine, aspirin 81 mg daily, Singulair and Lipitor 20 mg by mouth daily at bedtime Patient was evaluated by cardiology and recommended 2D ECHO and increased activity and dc if remains CP free Patient Condition at Discharge: Stable Plan - Discharge Summary Discharge Rx Participant: No New Discharge Prescriptions: New Metoprolol Tartrate [Lopressor] 25 mg PO BID #30 tab Continue Cholecalciferol [Vitamin D3 (25 Mcg = 1000 Iu)] 1,000 unit PO DAILY Calcium Carbonate [Calcium] 600 mg PO DAILY Ascorbic Acid [Vitamin C] 500 mg PO DAILY Levothyroxine Sodium [Euthyrox] 125 mcg PO DAILY Multivitamins, Thera [Multivitamin (formulary)] 1 tab PO DAILY Fish Oil/Dha/Epa [Fish Oil 1,200 mg Fish Oil] 1 cap PO HS Loratadine 10 mg PO DAILY Aspirin EC [Ecotrin Low Dose] 81 mg PO DAILY Montelukast [Singulair] 10 mg PO HS Atorvastatin Calcium [Lipitor] 20 mg PO HS Discharge Medication List Ascorbic Acid [Vitamin C] 500 mg PO DAILY 02/27/20 [History] Aspirin EC [Ecotrin Low Dose] 81 mg PO DAILY 02/27/20 [History] Atorvastatin Calcium [Lipitor] 20 mg PO HS 02/27/20 [History] Calcium Carbonate [Calcium] 600 mg PO DAILY 02/27/20 [History] Cholecalciferol [Vitamin D3 (25 Mcg = 1000 Iu)] 1,000 unit PO DAILY 02/27/20 [History] Fish Oil/Dha/Epa [Fish Oil 1,200 mg Fish Oil] 1 cap PO HS 02/27/20 [History] Levothyroxine Sodium [Euthyrox] 125 mcg PO DAILY 02/27/20 [History] Loratadine 10 mg PO DAILY 02/27/20 [History] Montelukast [Singulair] 10 mg PO HS 02/27/20 [History] Multivitamins, Thera [Multivitamin (formulary)] 1 tab PO DAILY 02/27/20 [History] Metoprolol Tartrate [Lopressor] 25 mg PO BID #30 tab 02/28/20 [Rx] Follow up Appointment(s)/Referral(s): Ulices Escalera MD [STAFF PHYSICIAN] - 1 Week Farshad De La Paz MD [Primary Care Provider] - 1-2 days Patient Instructions/Handouts: Chest Pain (DC) Discharge Disposition: HOME SELF-CARE
== END 2020-02-28 17:17 | disposition home or self-care (01) ==
LOC: EC 16:42 → 3NCARDOBS 18:15
PROVIDERS: ADMIT Internal Medicine; ATTEND Internal Medicine
DX: R07.9 Chest pain, unspecified (principal); E03.9 Hypothyroidism, unspecified; E78.5 Hyperlipidemia, unspecified; G47.33 Obstructive sleep apnea (adult) (pediatric); I10 Essential (primary) hypertension; J45.909 Unspecified asthma, uncomplicated; Z79.82 Long term (current) use of aspirin; Z79.890 Hormone replacement therapy; Z79.899 Other long term (current) drug therapy; Z82.49 Family history of ischemic heart disease and other diseases of the circulatory system
CPT/HCPCS: 99285; 36415; 94760; 93005; 93306; 85379; 83880; 80053; 83690; 83735; 84484; 85025; 85610; 85730; 71046; G0378 ×2

== ENCOUNTER → 2020-04-20 | Outpatient (CLI) | payer OTHER ==
--- NOTE | 2020-04-20 17:00 | PN ---
PROGRESS NOTE Mary is a 69, coming in for annual check regarding KAUSHIK. Doing extremely well on CPAP therapy at a pressure of 12 cm of water. No issues whatsoever. She has lost around 12- 13 pounds and she is trying to lose some more weight. Based on the compliance data, the patient has been averaging around 7.3 hours of CPAP use per night, CPAP use for more than 4 hours 100%. Leak is 13 L/minutes while using the AirFit P10 medium-sized nose pillows. Her AHI while on treatment is down to 1.3. No hypersomnia or sleepiness during the day. [place] score is at 2. BP is under good control. The patient started on antihypertensive medication. No stroke, no CVA. No issues with myocardial infarction, congestion heart failure or atrial fibrillation. REVIEW OF SYSTEMS: A 14-point review of system was done and positive findings are mentioned above in the history of present illness. PHYSICAL EXAMINATION: BP is 150/73, pulse 67, respirations 18, temperature 98.4, saturation 97% on room air. BMI is 38.9. [place] score is 2. GENERAL APPEARANCE: Calm, comfortable. HEAD: Atraumatic, normocephalic. NECK: Supple. No JVD. No goiter or neck masses. LUNGS: Clear to auscultation. HEART: Heart sounds are regular rate and rhythm, normal S1, S2. No S3, S4. No murmurs. ABDOMEN: Soft, nontender. No organomegaly. EXTREMITIES: No edema, no cyanosis or clubbing. NEUROLOGIC: Awake and alert and there is no focal neurological deficit. IMPRESSION: 1. Symptomatic obstructive sleep apnea with an AHI of 18, currently on CPAP with a pressure of 12 with excellent clinical response and compliance. 2. Obesity with interval weight loss. 3. Hypersomnia, recovered. 4. Hypothyroidism. PLAN: 1. Continue CPAP therapy at the same level of pressure. 2. No need for adjustment at this point in time. 3. Renew supplies. 4. The patient is at a temperature of the tubing of 70 and humidity level of 3, which will be kept unchanged. 5. See me back in followup in a year or 2. MMODL / IJN: [id number] /
== END | disposition home or self-care (01) ==
LOC: SLEEP 16:21
PROVIDERS: ATTEND Internal Medicine Critical Care Medicine
DX: G47.33 Obstructive sleep apnea (adult) (pediatric) (principal); E66.9 Obesity, unspecified; E03.9 Hypothyroidism, unspecified; Z99.89 Dependence on other enabling machines and devices

== ENCOUNTER → 2022-04-04 | Outpatient (CLI) | payer MEDICARE, BC ==
--- NOTE | 2022-04-05 13:40 | PN ---
PROGRESS NOTE SUBJECTIVE: A 71-year-old female patient with known history of obstructive sleep apnea, coming in for a regular check. She needs her supplies to be refilled. I saw this patient approximately a year ago for the same. She remains extremely compliant to CPAP therapy at a pressure of 9 cm of water. She has been averaging 8 hours of CPAP use and her CPAP compliancy for more than 4 hours is at 100%. While on treatment, her leak is in order of 4 L/minute and AHI is down to 5.3. No complaints otherwise for now. MEDICATIONS: Includes, 1. Synthroid 125 mcg p.o. daily. 2. Singulair 10 daily. 3. Lipitor 20 daily. 4. Lisinopril 5 daily. 5. Metoprolol 25 mg twice a day. 6. Aspirin 81 mg p.o. daily. 7. Claritin 10 mg p.o. daily. 8. Multivitamins. 9. Calcium. 10.Vitamin D. 11.Vitamin C. PHYSICAL EXAMINATION: VITAL SIGNS: BP is 150/89 with a pulse of 66, respirations 16, temperature 97.0, saturation 98% on room air, weight is 205. [place] score is down to 3. GENERAL APPEARANCE: Calm, comfortable. HEENT: Head atraumatic, normocephalic. NECK: Supple. No JVD. No goiter or neck masses Mallampati class 4. LUNGS: Clear to auscultation. No wheezes. HEART: Sounds regular rate and rhythm. Normal S1, S2. No murmurs. ABDOMEN: Soft, nontender. No organomegaly. No direct tenderness. No rebound tenderness or guarding. EXTREMITIES: No edema. No cyanosis or clubbing. NEUROLOGIC: Awake and alert. No focal neurological deficit. IMPRESSION: 1. Symptomatic obstructive sleep apnea effectively treated with CPAP pressure of 9 cm of water. Treatment continues to be successful with good compliancy. 2. Hypothyroidism. 3. Hyperlipidemia. 4. Hypertension. PLAN: Continue CPAP therapy and refill supplies. The patient will be given an AirFit P10 medium-size nasal pillows. The patient will be given masks, water chamber, heated hose and tubing and filters. Encourage weight loss. Continue maintaining a regular sleep schedule. See me back in 1 year's time in followup. MMODL / IJN: [id number] /
== END | disposition home or self-care (01) ==
LOC: SLEEP 15:15
PROVIDERS: ATTEND Internal Medicine Critical Care Medicine
DX: Z53.9 Procedure and treatment not carried out, unspecified reason (principal)